=== PATIENT | female | born 1985 | race Hispanic/Latino ===

== ENCOUNTER 2017-06-26 09:10 | Outpatient (CLI) | payer MEDICAID ==
--- NOTE | 2017-06-26 11:42 | XRay Report ---
XRAY BILATERAL KNEE FOUR VIEWS EACH: 06/26/17 09:10:00 CLINICAL: Pain. FINDINGS: Right: Mild osteopenia. No fracture or dislocation. Mild patellofemoral joint osteoarthritis with small osteophytes. The medial and lateral joint spaces are normal. No joint effusion. Normal soft tissues. Left: Mild osteopenia. No fracture or dislocation. The joint spaces are normal. No joint effusion.Normal soft tissues. IMPRESSION: Mild right patellofemoral joint osteoarthritis. Normal left knee except for osteopenia.
== END 2017-06-26 09:11 | disposition home or self-care (01) ==
LOC: SPVIMAG 09:10
PROVIDERS: ATTEND Orthopaedic Surgery Sports Medicine
DX: M17.11 Unilateral primary osteoarthritis, right knee (principal); M85.862 Other specified disorders of bone density and structure, left lower leg; M85.861 Other specified disorders of bone density and structure, right lower leg

== ENCOUNTER 2022-02-08 20:48 | Emergency (ER) | payer SELFPAY ==
--- NOTE | 2022-02-08 22:37 | Event Note ---
Date: 02/08/22 Please note: This is a triage screening note provided by this physician. The pt has undergone an examination by me. HPI obtained below. Serum labs and an electrocardiogram have been ordered. This patient is an obese 36-year-old female with self-reported history of "unspecified tachycardia" (she reports her wildlife protector is Dr. Swanson of [facility]), peripheral edema, hypertension, brought in by EMS for elevated heart rate. Patient states she presented to a local fire station "but I don't remember how I got to another fire station and that's where I ended up." Pt denies any chest pain, shortness of breath, palpitations, or any symptoms at this time. She states "I think I passed out." She denies any tobacco/alcohol/illicit drug usage. Pain 0/10. Exam: Gen: Obese female lying in stretcher speaking in full sentences comfortable appearing no acute distress HEENT:NCAT PERRL EOMI, sclera anicteric Psychiatric: Flat affect, does not appear to be responding to any internal stimuli, Neuro: ANO x4, mentating well, moving all extremities without difficulty, no focal neurodeficits, unable to test gait at this time MDM: Patient has been ordered for electrocardiogram, urine hCG, and serum labs to facilitate emergency department evaluation tonight. All of these variables are pending at the time of this dictation . The pt's care will be definitively managed by the overnight emergency department attending physician.
--- NOTE | 2022-02-08 22:50 | Emergency Department Report ---
ED General Adult HPI - General Chief complaint: Dizziness Stated complaint: SYNCOPE PUI?: No Time Seen by Provider: 02/08/22 22:39 Source: patient, RN notes reviewed Mode of arrival: Stretcher Limitations: Physical Limitation - History of Present Illness Initial comments: The patient was evaluated in the emergency department for symptoms described in the history of present illness. He/she was evaluated in the context of the g lobal COVID-19 pandemic, which necessitated consideration that the patient might be at risk for infection with the virus that causes COVID-19. Institutional protocols and algorithms that pertain to the evaluation of patients at risk for COVID-19 are in a state of rapid change based on information released by regulatory bodies including the CDC and federal and state organizations. These policies and algorithms were followed during the patient's care in the emergency department. Please note that these policies, procedures and recommendations changed on a rapid basis. This is a 36-year-old female. During the history and physical examination, I am chaperoned by nurse Evelyne Baez Past medical history includes body mass index of 44.6, and hypertension. The patient presents to the ER today with a complaint of "I had syncope." Patient reports that she was in her usual state of health earlier on today when she was at the gas station. She then reports that she ended up to the fire department, but does not know how she ended up at the fire department. Apparently while at the fire department she had episodes of loss of consciousness. These episodes are painless, and worsen when she sits up. Denies headache, neck pain, chest pain, abdominal pain, shortness of breath, vomiting diarrhea. She denies travel, surgery, immobilization, DVT and pulmonary embolism risk factors. Patient denies COVID symptoms Patient denies possibility of . Patient denies recreational drug use. -: Gradual Consistency: intermittent Improves with: rest Worsens with: none, movement - Related Data Previous Rx's Medication Instructions Recorded Last Taken Type Aspirin [Aspirin BABY CHEW TAB] 81 mg PO QDAY #30 tab.chew 02/09/22 Unknown Rx Allergies Allergy/AdvReac Type Severity Reaction Status Date / Time fluticasone Allergy Hives Verified 02/08/22 22:33 [From Advair Diskus] formoterol [From Dulera] Allergy Hives Verified 02/08/22 22:33 latex Allergy Headache Verified 02/08/22 22:32 mometasone furoate Allergy Hives Verified 02/08/22 22:33 [From Dulera] prednisone Allergy Itching Verified 02/08/22 22:32 salmeterol Allergy Hives Verified 02/08/22 22:33 [From Advair Diskus] ED Review of Systems ROS: Stated complaint: SYNCOPE Other details as noted in HPI Constitutional: diaphoresis, malaise, weakness. denies: fever Eyes: denies: vision change ENT: denies: epistaxis Respiratory: denies: cough Cardiovascular: syncope. denies: chest pain, palpitations Gastrointestinal: denies: abdominal pain, vomiting, diarrhea Genitourinary: denies: dysuria Neurological: weakness. denies: headache Psychiatric: anxiety Hematological/Lymphatic: denies: easy bleeding ED Past Medical Hx - Past Medical History Previous Medical History?: Yes Additional medical history: Cardiac Dysfunction - Surgical History Past Surgical History?: Yes Hx Cholecystectomy: Yes Additional Surgical History: Tonsils. Left Carpal Tunnel - Social History Smoking Status: Current Every Day Smoker Substance Use Type: None - Medications Home Medications: Home Medications Medication Instructions Recorded Confirmed Last Taken Type Aspirin [Aspirin BABY CHEW TAB] 81 mg PO QDAY #30 tab.chew 02/09/22 Unknown Rx ED Physical Exam - General Limitations: No Limitations General appearance: alert, in no apparent distress, obese - Head Head exam: Present: atraumatic, normocephalic - Eye Eye exam: Present: normal appearance, PERRL, EOMI. Absent: nystagmus - ENT ENT exam: Present: normal exam, normal orophraynx, mucous membranes moist, normal external ear exam - Neck Neck exam: Present: normal inspection, full ROM. Absent: tenderness, meningismus - Respiratory Respiratory exam: Present: normal lung sounds bilaterally. Absent: respiratory distress, wheezes, rales, rhonchi, stridor, decreased breath sounds - Cardiovascular Cardiovascular Exam: Present: regular rate, normal rhythm, normal heart sounds. Absent: bradycardia, tachycardia, irregular rhythm, systolic murmur, diastolic murmur, rubs, gallop - GI/Abdominal GI/Abdominal exam: Present: soft. Absent: distended, tenderness, guarding, rebound, rigid, pulsatile mass - Extremities Exam Extremities exam: Present: normal inspection, full ROM, normal capillary refill, other (2+ pulses noted in the bilateral upper and lower extremities. There is no palpable cord. negative Homans sign. Muscular compartments are soft. The pelvis is stable.). Absent: pedal edema, calf tenderness - Back Exam Back exam: Present: normal inspection, full ROM. Absent: tenderness, CVA tenderness (R), CVA tenderness (L), paraspinal tenderness, vertebral tenderness - Neurological Exam Neurological exam: Present: alert, oriented X3, other (No facial droop. Tongue midline. Extraocular movements intact bilaterally. Facial sensation intact to light touch in V1, V2, V3 distribution bilaterally. 5 and a 5 strength in 4 extremities. Sensation intact to light touch in 4 extremities.). Absent: motor sensory deficit - Psychiatric Psychiatric exam: Present: anxious - Skin Skin exam: Present: warm, dry, intact, normal color. Absent: rash ED Course Vital Signs 02/08/22 02/08/22 02/08/22 20:48 22:53 23:01 Temperature 98 F Pulse Rate 92 H 78 Respiratory 18 13 Rate Blood Pressure 162/106 150/89 O2 Sat by Pulse 98 95 99 Oximetry 02/08/22 02/08/22 02/08/22 23:15 23:31 23:45 Temperature Pulse Rate 81 90 82 Respiratory 15 18 20 Rate Blood Pressure 145/86 145/86 145/87 O2 Sat by Pulse 99 98 97 Oximetry 02/09/22 02/09/22 02/09/22 00:00 00:15 00:31 Temperature Pulse Rate 77 75 76 Respiratory 17 19 18 Rate Blood Pressure 145/87 154/92 O2 Sat by Pulse 98 96 96 Oximetry 02/09/22 02/09/22 00:45 00:54 Temperature Pulse Rate 84 Respiratory 18 Rate Blood Pressure 122/62 O2 Sat by Pulse 97 99 Oximetry - Reevaluation(s) Reevaluation #1: 02/09/22 01:16 Differential diagnosis, including but not limited to: Orthostasis, vagal event, structural cardiac disease, TIA, transient global amnesia Assessment and plan: 36-year-old female, who is afebrile, with reassuring vital signs, who is clinically sober, with a GCS of 15, NIH score of 0, who is not currently tachycardic, tachypneic or hypoxic, who denies DVT and pulmonary embolism risk factors, who is low risk by Wells criteria for pulmonary embolism and is PERC negative, presenting with lightheadedness and syncope/near syncope when sitting up. Heavily suspect orthostasis. Patient has lack of recollection of events, possibly transient global amnesia. She has an NIH score of 0 at this time. Laboratory studies are unremarkable. CT scan of the brain is unremarkable. Patient remains awake alert oriented, sober of sound mind and exhibits decision- making capacity. She is free from distracting injury. She remains persistently symptomatic when sitting up. Recommended admission to the medical service for supportive care and syncope. Patient currently contemplating. Patient understands the risks of leaving, including , disability, paralysis, loss of quality of life. She is currently deciding if she would like to be admitted or not. 02/09/22 02:01 Patient is adamant that she does not want to be admitted to the medical service. She presents is awake, alert, oriented, sober, of sound mind and exhibits decision-making capacity. Discussed risks of leaving, including , disability, paralysis, loss of quality of life, and permanent disability. Patient awake alert oriented, exhibits decision-making capacity, and is free from distracting injury. She understands that she may return to the emergency room right away if and when she changes her mind ED Medical Decision Making - Lab Data Result diagrams: 02/08/22 22:50 02/08/22 22:50 Vital Signs 02/08/22 02/08/22 02/08/22 20:48 22:53 23:01 Temperature 98 F Pulse Rate 92 H 78 Respiratory 18 13 Rate Blood Pressure 162/106 150/89 O2 Sat by Pulse 98 95 99 Oximetry 02/08/22 02/08/22 02/08/22 23:15 23:31 23:45 Temperature Pulse Rate 81 90 82 Respiratory 15 18 20 Rate Blood Pressure 145/86 145/86 145/87 O2 Sat by Pulse 99 98 97 Oximetry 02/09/22 02/09/22 02/09/22 00:00 00:15 00:31 Temperature Pulse Rate 77 75 76 Respiratory 17 19 18 Rate Blood Pressure 145/87 154/92 O2 Sat by Pulse 98 96 96 Oximetry 02/09/22 02/09/22 00:45 00:54 Temperature Pulse Rate 84 Respiratory 18 Rate Blood Pressure 122/62 O2 Sat by Pulse 97 99 Oximetry Lab Results 02/08/22 02/08/22 02/08/22 Range/Units 22:50 22:50 22:50 WBC 9.7 (4.5-11.0) K/mm3 RBC 4.89 (3.65-5.03) M/mm3 Hgb 13.1 (10.1-14.3) gm/dl Hct 39.0 (30.3-42.9) % MCV 80 (79-97) fl MCH 27 L (28-32) pg MCHC 34 (30-34) % RDW 13.7 (13.2-15.2) % Plt Count 327 (140-440) K/mm3 Lymph % (Auto) 26.7 (13.4-35.0) % Atlantic % (Auto) 5.7 (0.0-7.3) % Eos % (Auto) 0.3 (0.0-4.3) % Baso % (Auto) 0.6 (0.0-1.8) % Lymph # (Auto) 2.6 (1.2-5.4) K/mm3 Atlantic # (Auto) 0.6 (0.0-0.8) K/mm3 Eos # (Auto) 0.0 (0.0-0.4) K/mm3 Baso # (Auto) 0.1 (0.0-0.1) K/mm3 Seg Neutrophils % 66.7 (40.0-70.0) % Seg Neutrophils # 6.5 (1.8-7.7) K/mm3 PT (12.2-14.9) Sec. INR (0.87-1.13) Sodium 137 (137-145) mmol/L Potassium 4.3 (3.6-5.0) mmol/L Chloride 101.6 (98-107) mmol/L Carbon Dioxide 24 (22-30) mmol/L Anion Gap 16 mmol/L BUN 8 (7-17) mg/dL Creatinine 0.7 (0.6-1.2) mg/dL Estimated GFR > 60 ml/min BUN/Creatinine Ratio 11 % Glucose 106 H (65-100) mg/dL Calcium 9.5 (8.4-10.2) mg/dL Magnesium (1.7-2.3) mg/dL Total Bilirubin 0.30 (0.1-1.2) mg/dL AST 13 (5-40) units/L ALT 16 (7-56) units/L Alkaline Phosphatase 52 (35-129) units/L Total Creatine Kinase (30-135) units/L Total Protein 7.1 (6.3-8.2) g/dL Albumin 3.9 (3.9-5) g/dL Albumin/Globulin Ratio 1.2 % HCG, Quant (0-4) mIU/mL Salicylates (2.8-20.0) mg/dL Acetaminophen (10.0-30.0) ug/mL Plasma/Serum Alcohol < 0.01 (0-0.07) % 02/08/22 02/08/22 02/08/22 Range/Units 23:08 23:08 23:08 WBC (4.5-11.0) K/mm3 RBC (3.65-5.03) M/mm3 Hgb (10.1-14.3) gm/dl Hct (30.3-42.9) % MCV (79-97) fl MCH (28-32) pg MCHC (30-34) % RDW (13.2-15.2) % Plt Count (140-440) K/mm3 Lymph % (Auto) (13.4-35.0) % Atlantic % (Auto) (0.0-7.3) % Eos % (Auto) (0.0-4.3) % Baso % (Auto) (0.0-1.8) % Lymph # (Auto) (1.2-5.4) K/mm3 Atlantic # (Auto) (0.0-0.8) K/mm3 Eos # (Auto) (0.0-0.4) K/mm3 Baso # (Auto) (0.0-0.1) K/mm3 Seg Neutrophils % (40.0-70.0) % Seg Neutrophils # (1.8-7.7) K/mm3 PT 13.2 (12.2-14.9) Sec. INR 0.91 (0.87-1.13) Sodium (137-145) mmol/L Potassium (3.6-5.0) mmol/L Chloride (98-107) mmol/L Carbon Dioxide (22-30) mmol/L Anion Gap mmol/L BUN (7-17) mg/dL Creatinine (0.6-1.2) mg/dL Estimated GFR ml/min BUN/Creatinine Ratio % Glucose (65-100) mg/dL Calcium (8.4-10.2) mg/dL Magnesium 1.90 (1.7-2.3) mg/dL Total Bilirubin (0.1-1.2) mg/dL AST (5-40) units/L ALT (7-56) units/L Alkaline Phosphatase (35-129) units/L Total Creatine Kinase 121 (30-135) units/L Total Protein (6.3-8.2) g/dL Albumin (3.9-5) g/dL Albumin/Globulin Ratio % HCG, Quant < 2 (0-4) mIU/mL Salicylates (2.8-20.0) mg/dL Acetaminophen (10.0-30.0) ug/mL Plasma/Serum Alcohol (0-0.07) % 02/08/22 02/08/22 Range/Units 23:08 23:08 WBC (4.5-11.0) K/mm3 RBC (3.65-5.03) M/mm3 Hgb (10.1-14.3) gm/dl Hct (30.3-42.9) % MCV (79-97) fl MCH (28-32) pg MCHC (30-34) % RDW (13.2-15.2) % Plt Count (140-440) K/mm3 Lymph % (Auto) (13.4-35.0) % Atlantic % (Auto) (0.0-7.3) % Eos % (Auto) (0.0-4.3) % Baso % (Auto) (0.0-1.8) % Lymph # (Auto) (1.2-5.4) K/mm3 Atlantic # (Auto) (0.0-0.8) K/mm3 Eos # (Auto) (0.0-0.4) K/mm3 Baso # (Auto) (0.0-0.1) K/mm3 Seg Neutrophils % (40.0-70.0) % Seg Neutrophils # (1.8-7.7) K/mm3 PT (12.2-14.9) Sec. INR (0.87-1.13) Sodium (137-145) mmol/L Potassium (3.6-5.0) mmol/L Chloride (98-107) mmol/L Carbon Dioxide (22-30) mmol/L Anion Gap mmol/L BUN (7-17) mg/dL Creatinine (0.6-1.2) mg/dL Estimated GFR ml/min BUN/Creatinine Ratio % Glucose (65-100) mg/dL Calcium (8.4-10.2) mg/dL Magnesium (1.7-2.3) mg/dL Total Bilirubin (0.1-1.2) mg/dL AST (5-40) units/L ALT (7-56) units/L Alkaline Phosphatase (35-129) units/L Total Creatine Kinase (30-135) units/L Total Protein (6.3-8.2) g/dL Albumin (3.9-5) g/dL Albumin/Globulin Ratio % HCG, Quant (0-4) mIU/mL Salicylates < 0.3 L (2.8-20.0) mg/dL Acetaminophen 5.0 L (10.0-30.0) ug/mL Plasma/Serum Alcohol (0-0.07) % - EKG Data -: EKG Interpreted by Ca EKG shows normal: sinus rhythm Rate: normal - EKG Data When compared to previous EKG there are: previous EKG unavailable 02/09/22 01:08 The EKG is interpreted at 20: 05 Sinus rhythm, 81 bpm. Borderline leftward axis deviation, there is a normal P wave axis. The QTC is 4 9 2 ms. There is poor R wave progression. This is an abnormal EKG. This is not a STEMI. - Radiology Data Radiology results: pending, report reviewed, image reviewed CT HEAD WITHOUT CONTRAST INDICATION / CLINICAL INFORMATION: Transient al teration in awareness. TECHNIQUE: CT head was performed without administration of intravenous contrast. All CT scans at this location are performed using CT dose reduction for ALARA by means of automated exposure control. COMPARISON: None available. FINDINGS: CEREBRAL HEMISPHERES: There is no evidence of large territorial infarction or significant abnormality of martinez-white matter differentiation. Ventricles within normal limits. No midline shift. Basal cisterns patent. HEMORRHAGE: None. CEREBELLUM / BRAINSTEM: No significant abnormality. ORBITS: No significant abnormality. SOFT TISSUES: No significant abnormality. SKULL: No significant abnormality. PARANASAL SINUSES / MASTOID AIR CELLS: Normal as visualized. ADDITIONAL FINDINGS: None. IMPRESSION: 1. No acute intracranial abnormality. Signer Name: Anton Osman II, MD Signed: 02/08/2022 11:20 PM Workstation Name: [id number] Critical care attestation.: If time is entered above; I have spent that time in minutes in the direct care of this critically ill patient, excluding procedure time. ED Disposition Clinical Impression: Transient global amnesia, Syncope Disposition: 07 LEFT AGAINST MEDICAL ADVICE Is pt being admited?: No Does the pt Need Aspirin: No Condition: Undetermined Instructions: Syncope (ED), Syncope, [id number] Additional Instructions: As we discussed, you have left the hospital/emergency room AGAINST MEDICAL ADVICE. By leaving, you risked , disability, paralysis, permanent loss of quality of life. The ER is open 24 hours a day, 7 days a week. It never closes. Please return to the emergency room right away if and when you change your mind. If you decide not to return to the emergency room, please follow-up with the listed physician referrals as soon as possible. 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 [Provider Group] - [facility] [Provider Group] - [facility] [Provider Group] - [facility]
[2022-02-08 23:16] LABS: Basophils # (Auto) 0.1 K/mm3 (0.0-0.1); Basophils % (Auto) 0.6 % (0.0-1.8); Eosinophils % (Auto) 0.3 % (0.0-4.3); Hemoglobin 13.1 gm/dl (10.1-14.3); Lymphocytes # (Auto) 2.6 K/mm3 (1.2-5.4); Lymphocytes % (Auto) 26.7 % (13.4-35.0); Mean Corpuscular HGB Conc 34 % (30-34); Mean Corpuscular Volume 80 fl (79-97); Monocytes # (Auto) 0.6 K/mm3 (0.0-0.8); Monocytes % (Auto) 5.7 % (0.0-7.3); Platelet Count 327 K/mm3 (140-440); Red Blood Count 4.89 M/mm3 (3.65-5.03); Red Cell Distribution Width 13.7 % (13.2-15.2)
[2022-02-08] MEDS ORDERED: LACTATED RINGERS 1,000 ML IV ONE (23:27)
[2022-02-08 23:33] LABS: Alanine Aminotransferase 16 units/L (7-56); Albumin 3.9 g/dL (3.9-5); Blood Urea Nitrogen 8 mg/dL (7-17); Calcium 9.5 mg/dL (8.4-10.2); Hemolysis Index 12
[2022-02-08 23:40] LABS: INR 0.91 (0.87-1.13)
[2022-02-08 23:41] LABS: BUN/Creatinine Ratio 11
--- NOTE | 2022-02-09 00:24 | Cat Scan Report ---
CT HEAD WITHOUT CONTRAST INDICATION / CLINICAL INFORMATION: Transient alteration in awareness. TECHNIQUE: CT head was performed without administration of intravenous contrast. All CT scans at this location are performed using CT dose reduction for ALARA by means of automated exposure control. COMPARISON: None available. FINDINGS: CEREBRAL HEMISPHERES: There is no evidence of large territorial infarction or significant abnormality of martinez-white matter differentiation. Ventricles within normal limits. No midline shift. Basal ciste rns patent. HEMORRHAGE: None. CEREBELLUM / BRAINSTEM: No significant abnormality. ORBITS: No significant abnormality. SOFT TISSUES: No significant abnormality. SKULL: No significant abnormality. PARANASAL SINUSES / MASTOID AIR CELLS: Normal as visualized. ADDITIONAL FINDINGS: None. IMPRESSION: 1. No acute intracranial abnormality. Signer Name: Anton Osman II, MD Signed: 02/09/2022 12:20 AM Workstation Name: [id number]
[2022-02-09 03:03] VITALS: BP 153/91
--- NOTE | 2022-02-09 15:19 | Electrocardiograph Report ---
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
== END 2022-02-09 03:30 | disposition left against medical advice (07) ==
LOC: ED 20:48
DX: G45.4 Transient global amnesia (principal); R55 Syncope and collapse; Z90.49 Acquired absence of other specified parts of digestive tract; F17.200 Nicotine dependence, unspecified, uncomplicated; Z88.6 Allergy status to analgesic agent; Z91.040 Latex allergy status; Z91.09 Other allergy status, other than to drugs and biological substances; Z79.899 Other long term (current) drug therapy
CPT/HCPCS: 36415; 70450; 80053; 82550; 83735; 84484; 84702; 85025; 85610; 93005; 96360; 99284; J7120; 80320; G0480